=== PATIENT | female | born 1995 | race Two or more races ===

== ENCOUNTER 2020-03-05 17:49 | Emergency (ER) | payer OTHER ==
[~2020-03-05] VITALS: Ht 149.9 cm; Wt 78.9 kg
[2020-03-05 18:13] VITALS: Ht 149.9 cm; Wt 78.9 kg
[2020-03-05 20:46] VITALS: BP 118/78
== END 2020-03-05 20:46 | disposition home or self-care (01) ==
LOC: ED 17:49
DX: O26.891 Other specified pregnancy related conditions, first trimester (principal); R10.2 Pelvic and perineal pain; Z3A.01 Less than 8 weeks gestation of pregnancy
CPT/HCPCS: Q0092